=== PATIENT | female | born 1945 | race Caucasian/White ===

== ENCOUNTER 2018-04-07 18:52 | Emergency (ER) | payer OTHER ==
[2018-04-07 19:11] VITALS: RESP 13
[2018-04-07] MEDS ORDERED: Sodium Chloride 0.9% 500 ML IV ONE ×2 (19:23→19:32)
--- NOTE | 2018-04-07 19:29 | C.PDOC ---
History Of Present Illness 72 year old female with a history of schizophrenia presents to the emergency department with complaints of left groin pain for the last two days. Patient states that she was lifting heavy cat litter when the pain began. She denies fe wilfredo or other complaints. Time Seen by Provider: 04/07/18 19:04 Chief Complaint (Nursing): Female Genitourinary History Per: Patient History/Exam Limitations: no limitations Onset/Duration Of Symptoms: Days (2) Current Symptoms Are (Timing): Still Present Quality Of Discomfort: "Pain" Associated Symptoms: denies: Fever, Urinary Symptoms Past Medical History Reviewed: Historical Data, Nursing Documentation, Vital Signs Vital Signs: Last Vital Signs Temp 98.2 F 04/07/18 19:06 Pulse 104 H 04/07/18 19:06 Resp 13 04/07/18 19:06 BP 128/62 04/07/18 19:06 Pulse Ox 97 04/07/18 19:06 - Medical History PMH: Bronchitis, HTN Surgical History: No Surg Hx Family History: States: No Known Family Hx - Social History Hx Alcohol Use: No Hx Substance Use: No - Immunization History Hx Tetanus Toxoid Vaccination: No Hx Influenza Vaccination: No Hx Pneumococcal Vaccination: No Review Of Systems Except As Marked, All Systems Reviewed And Found Negative. Constitutional: Negative for: Fever Genitourinary: Positive for: Pelvic Pain (left-sided). Negative for: Dysuria, H ematuria Physical Exam - Physical Exam Appears: Non-toxic, No Acute Distress Skin: Warm, Dry Head: Atraumatic, Normacephalic Eye(s): bilateral: Normal Inspection, PERRL, EOMI Nose: Normal Neck: Normal, Supple Chest: Symmetrical, No Tenderness Cardiovascular: Rhythm Regular, No Murmur Respiratory: No Rales, No Rhonchi, No Wheezing Gastrointestinal/Abdominal: Soft, Tenderness (left inguinal tenderness, no pa lpable hernia), No Guarding, No Rebound Neurological/Psych: Oriented x3, Normal Speech, Normal Cognition ED Course And Treatment - Laboratory Results Result Diagrams: 04/07/18 19:30 04/07/18 19:30 O2 Sat by Pulse Oximetry: 97 (RA) Pulse Ox Interpretation: Normal - CT Scan/US CT Abdomen and Pelvis Other Rad Studies (CT/US): Read By Radiologist, Radiology Report Reviewed CT/US Interpretation: IMPRESSION: 1. There is a left inguinal hernia, likely containing fluid. The extent of the hernia is a very short. No surrounding inflammatory changes identifiable. 2. Wall thickening of transverse colon. 3. The pulmonary bases are well aerated except for dependent atelectasis in the right lung. Medical Decision Making Medical Decision Making: ?hernia vs msk pain Plan: CMP Lipase CBC PTT Prothrombin Time NaCl IV Fluids Toradol 30mg IVP XR Hip Left Urinalysis pt reassesed pain improve.d cr shows minimal hernia with fluid. abd soft no ttp. pt states feels well for dc. advise outpt fu. Disposition - Disposition Referrals: [facility] [Outside] [facility] [Outside] Henry Rausch Jr., MD [Staff Provider] - Disposition: HOME/ ROUTINE Disposition Time: 22:00 Condition: STABLE Additional Instructions: follow up with your doctor/clinic and specialist. Instructions: Inguinal and Femoral (Groin) Hernias Forms: [employer] (Turkish) - Clinical Impression Clinical Impression: Inguinal hernia - Scribe Statement The provider has reviewed the documentation as recorded by the Scribe (Hussein Lea) Provider Attestation: All medical record entries made by the Scribe were at my direction and personally dictated by me. I have reviewed the chart and agree that the record accurately reflects my personal performance of the history, physical exam, medical decision making, and the department course for this patient. I have also personally directed, reviewed, and agree with the discharge instructions and disposition.
[2018-04-07 19:33] LABS: BASO % 0.1 % (0.0-2.0); LYMPH # 1.1 K/uL (1.0-4.3); LYMPH % 10.9 % (20.0-40.0); MEAN CELL VOLUME 90.6 fL (81.0-99.0); MEAN CORPUSCULAR HGB CONC 33.1 g/dL (33.0-37.0); MEAN PLATELET VOLUME 9.1 fL (7.2-11.7); MONO # 1.2 K/uL (0.0-0.8); MONO % 11.4 % (0.0-10.0); NEUT % 77.6 % (50.0-75.0); NRBC % 0.1 % (0.0-2.0); RBC 4.34 Mil/uL (3.80-5.20); RED CELL DISTRIBUTION WIDTH 13.3 % (11.5-14.5); WHITE BLOOD COUNT 10.3 K/uL (4.8-10.8)
[2018-04-07 19:41] LABS: INR 1.2; PROTHROMBIN TIME 12.9 SECONDS (9.7-12.2)
[2018-04-07 19:47] LABS: ALB/GLOB RATIO 1.5 (1.0-2.1); ALBUMIN 4.2 g/dL (3.5-5.0); ALT/SGPT 14 U/L (9-52); AST/SGOT 22 U/L (14-36); BLOOD UREA NITROGEN 15 mg/dL (7-17); CALCIUM 9.5 mg/dl (8.6-10.4); GFR NON-AFRICAN AMERICAN > 60; LIPASE 30 U/L (23-300)
[2018-04-07] MEDS ORDERED: Iohexol 300 100 ML IJ ONE (20:44)
[2018-04-07 20:51] LABS: URINE BILIRUBIN NEGATIVE (NEGATIVE); URINE BLOOD 1+ (NEGATIVE); URINE CLARITY Clear (Clear); URINE COLOR Straw (YELLOW); URINE GLUCOSE (UA) NORMAL (Normal); URINE LEUKOCYTE ESTERASE NEG Leu/uL (Negative); URINE PROTEIN NEGATIVE (NEGATIVE); URINE UROBILINOGEN NORMAL mg/dL (0.2-1.0)
[2018-04-07 22:11] VITALS: BP 123/65; PULSE 97; TEMP 98.1
[2018-04-07 23:11] VITALS: O2SAT 97
--- NOTE | 2018-04-08 13:08 | RAD ---
Date of service: 04/07/2018 PROCEDURE: LEFT HIP WITH PELVIS RADIOGRAPHS HISTORY: pain COMPARISON: None available. TECHNIQUE: Frontal views of the pelvis and left hip joints with frog-leg lateral view of the left hip as well. FINDINGS: No acute fracture, subluxation or dislocation involving left hip joint. Pelvic ring grossly appears intact. Overlying bowel obscures sacrum and iliac bones evaluation. Pubic symphysis appears intact as well as remaining pubic bony anatomy. Bilateral sacroiliac and hip joint degenerative sclerosis is appreciated at the articular cortices. IMPRESSION: No definitive fracture or dislocation left hip joint or the pelvic ring. Overlying bowel obscures pelvic bones as discussed above. Degenerative changes bilateral sacroiliac and hip joints.
--- NOTE | 2018-04-08 14:37 | CT ---
Date of service: 04/07/2018 PROCEDURE: CT Abdomen and Pelvis with contrast HISTORY: left inginal pain ?hernia COMPARISON: None. TECHNIQUE: Following the intravenous administration of iodinated contrast material, a CT examination of the abdomen and pelvis performed from the domes of the diaphragms to the symphysis pubis with reformatted datasets provided in axial, sagittal and coronal planes. Oral contrast was not administered as per referring physician request. Coronal and sagittal reformats were generated. contrast dose: Omnipaque 300, 100 cc Radiation dose: Total exam DLP = 210.1 mGy-cm. This CT exam was performed using one or more of the following dose reduction techniques: Automated exposure control, adjustment of the mA and/or kV according to patient size, and/or use of iterative reconstruction technique. FINDINGS: LOWER THORAX: Limited bibasilar dependent atelectasis identified in the lung bases with a small hiatal hernia also identified. LIVER: There is a 1.2 cm lucency at right lobe liver which is difficult to characterize due to its relatively small size. It does not represent a simple cyst given its intermediate density. Consider follow-up MRI without contrast for added characterization. No significant intrahepatic biliary dilatation identified. GALLBLADDER AND BILE DUCTS: Unremarkable. PANCREAS: Unremarkable appearing. SPLEEN: Unremarkable. ADRENALS: Unremarkable. No mass. KIDNEYS AND URETERS: There 2 tiny lucency identified at the midpole left kidney too small to characterize with both kidneys otherwise unremarkable. VASCULATURE: Nonaneurysmal abdominal aortic calcific atherosclerotic changes are identified. BOWEL: No bowel obstruction is appreciated. Evaluation of the gastrointestinal tract is limited due to the lack of oral contrast administration. Moderate amount retained material scattered throughout large-bowel. No definitive suspicious bowel findings throughout. The stomach is mildly distend retained fluid. APPENDIX: Normal appendix. PERITONEUM: Unremarkable. No free fluid. No free air. LYMPH NODES: Unremarkable. No enlarged lymph nodes. BLADDER: Unremarkable. REPRODUCTIVE: 2.1 cm right adnexal cyst. BONES: No acute fracture. OTHER FINDINGS: None. IMPRESSION: 1. 1.2 cm lucency in the right lobe liver of uncertain origin. This may represent a benign hemangioma. Consider follow-up MRI with and without gadolinium for added characterization. 2. No obstructive uropathy identified bilaterally. Two tiny lucencies are mid identified at the midpole left kidney too small to characterize. 3. No definite acute abdominal pelvic findings as discussed above. Discordant preliminary report from [facility] (Impression No. 1), 04/07/2018. PA review assigned.
== END 2018-04-07 23:11 | disposition home or self-care (01) ==
LOC: C.ER 18:52
DX: K40.90 Unilateral inguinal hernia, without obstruction or gangrene, not specified as recurrent (principal)
CPT/HCPCS: 73503; 74177; 80053; 81001; 83690; 85025; 85610; 85730; 96361; 96374; 99284; J1885; J7040; Q9967

== ENCOUNTER 2018-08-05 12:21 | Emergency (ER) | payer OTHER ==
[2018-08-05 12:43] VITALS: BP 127/82; PULSE 99; RESP 18; TEMP 98.8; O2SAT 100
[2018-08-05] MEDS ORDERED: Amoxicillin-Clav 875-125 mg Tab PO STA (12:54)
[2018-08-05] MEDS ORDERED: Tetanus/Diphtheria Toxoids 0.5 ml Syringe IM ONE ×2 (12:54→13:15)
--- NOTE | 2018-08-05 12:57 | C.PDOC ---
History Of Present Illness 73 y/o female pt presents to the ER c/o left hand pain and swelling for x1 day. Pt reports her cat scratched her x3 days ago and she noticed yesterday the swelling and pain when she was picking up groceries. Pt also c/o green mucus when she cough. Pt denies fall, injury, fever, running nose, sore throat or ear pain. Pt is not UTD, last tetanus 40 years ago. Time Seen by Provider: 08/05/18 12:42 Chief Complaint (Nursing): Abnormal Skin Integrity History Per: Patient History/Exam Limitations: no limitations Onset/Duration Of Symptoms: Days (x1) Current Symptoms Are (Timing): Still Present Past Medical History Reviewed: Historical Data, Nursing Documentation, Vital Signs Vital Signs: Last Vital Signs Temp 98.8 F 08/05/18 12:36 Pulse 99 H 08/05/18 12:36 Resp 18 08/05/18 12:36 BP 127/82 08/05/18 12:36 Pulse Ox 100 08/05/18 12:36 - Medical History PMH: Bronchitis, HTN Family History: States: No Known Family Hx - Social History Hx Alcohol Use: No Hx Substance Use: No - Immunization History Hx Tetanus Toxoid Vaccination: No Hx Influenza Vaccination: No Hx Pneumococcal Vaccination: No Review Of Systems Constitutional: Negative for: Fever, Other (fall/injury ) ENT: Negative for: Ear Pain, Nose Discharge, Throat Pain Respiratory: Positive for: Cough (productive with green mucus ) Skin: Positive for: Other (left hand pain and swelling ) Physical Exam - Physical Exam Appears: Non-toxic, No Acute Distress, Other (occasional cough ) Skin: Warm, Dry, No Rash Head: Normacephalic Eye(s): bilateral: Normal Inspection Nose: Normal Oral Mucosa: Moist Throat: Normal, No Erythema, No Exudate Cardiovascular: Rhythm Regular Respiratory: Normal Breath Sounds, No Rales, No Rhonchi, No Wheezing, Other (able to speak full sentences ) Gastrointestinal/Abdominal: Soft, No Tenderness Extremity: Capillary Refill (<2 sec ), No Deformity, Swelling (left hand dorsum; erythema up to wrist but sparing distal digits), Other (2 cm laceration on dorsum ; no proximal streaking, induration or fluctuance ) Pulses: Left Radial: Normal Neurological/Psych: Oriented x3, Normal Speech ED Course And Treatment O2 Sat by Pulse Oximetry: 100 (RA) Pulse Ox Interpretation: Normal Progress Note: Plans: -- ibuprofen. -- tessalon. -- tetanus. -- amoxicillin. -- trace area of cellulitis and was given rx to go home and gave strict instructions to come back if condition worsens Disposition Counseled Patient/Family Regarding: Diagnosis, Need For Followup, Rx Given - Disposition Referrals: Yves Pham MD [Staff Provider] - Disposition: HOME/ ROUTINE Disposition Time: 13:15 Condition: STABLE Additional Instructions: FOLLOW UP WITH YOUR DOCTOR IN 1-2 DAYS USE MEDICATIONS DIRECTED RETURN TO ER IF AREA OF SWELLING OR REDNESS WORSENS Prescriptions: Amoxicillin/Clavulanate [Augmentin 875 MG-125 MG] 1 tab PO BID #14 tab Benzonatate [Tessalon Perles] 100 mg PO BID PRN #15 sgl PRN Reason: Cough Ibuprofen [Motrin Tab] 600 mg PO Q6 PRN #30 tab PRN Reason: fever/pain Instructions: Cellulitis (Skin Infection), Adult (DC) Forms: [employer] (Slovenian) Print Language: [place] - Clinical Impression Clinical Impression: Cellulitis of left hand, Viral upper respiratory infection - Scribe Statement The provider has reviewed the documentation as recorded by the Scribe Sallie James Provider Attestation: All medical record entries made by the Scribe were at my direction and personally dictated by me. I have reviewed the chart and agree that the record accurately reflects my personal performance of the history, physical exam, medical decision making, and the department course for this patient. I have also personally directed, reviewed, and agree with the discharge instructions and disposition.
[2018-08-05] MEDS ORDERED: Amoxicillin-Clav 875-125 mg Tab PO ONE (13:10)
== END 2018-08-05 13:20 | disposition home or self-care (01) ==
LOC: C.ER 12:21
DX: L03.114 Cellulitis of left upper limb (principal); J06.9 Acute upper respiratory infection, unspecified